=== PATIENT | male | born 1985 | race American Indian/Alaskan Native ===

== ENCOUNTER 2019-06-26 15:41 | Emergency (ER) | payer OTHER ==
[2019-06-26 16:27] VITALS: BP 122/76
--- NOTE | 2019-06-26 16:27 | Emergency Department Report ---
Blank Doc - Documentation Documentation: 33-year-old male that presents with right hand pain after tree fell onto hand. This initial assessment/diagnostic orders/clinical plan/treatment(s) is/are subject to change based on patient's health status, clinical progression and re- assessment by fellow clinical providers in the ED. Further treatment and workup at subsequent clinical providers discretion. Patient/guardians urged not to elope from the ED as their condition may be serious if not clinically assessed and managed. Initial orders include: 1- Patient sent to [facility] for further evaluation and treatment 2- xrays
--- NOTE | 2019-06-26 17:12 | XRay Report ---
RIGHT HAND 3 VIEWS INDICATION / CLINICAL INFORMATION: hand pain. COMPARISON: None available. FINDINGS: No fracture, dislocation or soft tissue swelling is seen within the right hand. Joint spaces are well preserved. Signer Name: Brandt Rapp MD Signed: 06/26/2019 5:07 PM Workstation Name: [id number]
[2019-06-26] MEDS ORDERED: ACETAMINOPHEN W/CODEINE 300-30 MG TAB PO ONE (17:27)
--- NOTE | 2019-06-26 17:27 | Emergency Department Report ---
ED Extremity Problem HPI - General Chief complaint: Extremity Problem,Nontraumatic Stated complaint: RT HAND INJURY/PAIN Time Seen by Provider: 06/26/19 16:26 Source: patient Mode of arrival: Ambulatory Limitations: No Limitations - History of Present Illness Initial comments: pt is a 33-year-old male presents emergency room with complaints of right hand pain that began just prior to arrival. Patient states that he was cutting a log at work when the log landed on his right hand. He denies any abrasions or lacerations. Denies ever injuring in the past. he denies any numbness or weakness. He denies any past medical history or allergies medications. - Related Data Previous Rx's Medication Instructions Recorded Last Taken Type Naproxen [EC-Naproxen] 500 mg PO BID PRN #14 tablet. 06/26/19 Unknown Rx Allergies Allergy/AdvReac Type Severity Reaction Status Date / Time No Known Allergies Allergy Verified 06/26/19 15:43 ED Review of Systems ROS: Stated complaint: RT HAND INJURY/PAIN Other details as noted in HPI Comment: All other systems reviewed and negative ED Past Medical Hx - Past Medical History Previous Medical History?: No - Surgical History Past Surgical History?: No - Social History Smoking Status: Current Every Day Smoker Substance Use Type: None - Medications Home Medications: Home Medications Medication Instructions Recorded Confirmed Last Taken Type Naproxen [EC-Naproxen] 500 mg PO BID PRN #14 tablet. 06/26/19 Unknown Rx ED Physical Exam - General Limitations: No Limitations General appearance: alert, in no apparent distress - Head Head exam: Present: atraumatic, normocephalic - Eye Eye exam: Present: normal appearance - ENT ENT exam: Present: mucous membranes moist - Extremities Exam Extremities exam: Present: other (TTP over the dorsal surface of the right hand, small amount of edema present, no ecchymosis, no obvious deformity, FROM of the right elbow, wrist, hand, and digits without difficulty, neurovascularly intact, skin intact) - Neurological Exam Neurological exam: Present: alert, oriented X3 - Psychiatric Psychiatric exam: Present: normal affect, normal mood - Skin Skin exam: Present: warm, dry, intact ED Course Vital Signs 06/26/19 16:25 Temperature 98 F Pulse Rate 85 Respiratory 16 Rate Blood Pressure 122/76 O2 Sat by Pulse 97 Oximetry ED Medical Decision Making - Radiology Data Radiology results: report reviewed RIGHT HAND 3 VIEWS INDICATION / CLINICAL INFORMATION: hand pain. COMPARISON: None available. FINDINGS: No fracture, dislocation or soft tissue swelling is seen within the right hand. Joint spaces are well preserved. Signer Name: Brandt Rapp MD Signed: 06/26/2019 5:07 PM Workstation Name: [id number] Transcribed By: TL Dictated By: Brandt Rapp MD Electronically Authenticated By: Brandt Rapp MD Signed Date/Time: 06/26/19 2247 - Medical Decision Making pt is a 33-year-old male presents emergency room with complaints of right hand pain that began just prior to arrival. Patient states that he was cutting a log at work when the log landed on his right hand. He denies any abrasions or lacerations. Denies ever injuring in the past. he denies any numbness or weakness. He denies any past medical history or allergies medications. VSS. on exam: TTP over the dorsal surface of the right hand, small amount of edema present, no ecchymosis, no obvious deformity, FROM of the right elbow, wrist, hand, and digits without difficulty, neurovascularly intact, skin intact. XR of the right hand: No fracture, dislocation or soft tissue swelling is seen within the right hand. Joint spaces are well preserved. discussed results with pt. pt did not drive to the ED, pts discomfort treated while in the ED and improved. pt given prescription for naproxen. advised pt to please take medication as prescribed as needed. May use elevation of the arm, ice for 15 minutes at a time, rest. Please follow-up with orthopedic doctor in the next 2-3 days if symptoms are not improving. Return to the emergency room for any new or worsening symptoms - Differential Diagnosis strain, sprain, fx, dislocation, tendon/ligament injury Critical care attestation.: If time is entered above; I have spent that time in minutes in the direct care of this critically ill patient, excluding procedure time. ED Disposition Clinical Impression: Injury of right hand Qualifiers: Encounter type: initial encounter Qualified Code(s): S69.91XA - Unspecified injury of right wrist, hand and finger(s), initial encounter Disposition: - TO HOME OR SELFCARE Is pt being admited?: No Does the pt Need Aspirin: No Condition: Stable Instructions: Hand Sprain (ED) Additional Instructions: Please take medication as prescribed as needed. May use elevation of the arm, ice for 15 minutes at a time, rest. Please follow-up with orthopedic doctor in the next 2-3 days if symptoms are not improving. Return to the emergency room for any new or worsening symptoms Prescriptions: Naproxen [EC-Naproxen] 500 mg PO BID PRN #14 tablet.dr RUCKER Reason: pain Referrals: JEROME OWENS MD [Staff Physician] - 2-3 Days Time of Disposition: 17:30 Print Language: SERBIAN
== END 2019-06-26 18:14 | disposition home or self-care (01) ==
LOC: ED 15:41
DX: S69.91XA Unspecified injury of right wrist, hand and finger(s), initial encounter (principal); F17.200 Nicotine dependence, unspecified, uncomplicated; Z79.899 Other long term (current) drug therapy; W22.8XXA Striking against or struck by other objects, initial encounter; Y93.89 Activity, other specified; Y92.69 Other specified industrial and construction area as the place of occurrence of the external cause; Y99.8 Other external cause status
CPT/HCPCS: 99283

== ENCOUNTER 2021-08-02 21:04 | Emergency (ER) | payer OTHER ==
[2021-08-02] MEDS ORDERED: LIDOCAINE-MPF (1%) 10 MG/1 ML VIAL 5 ML INFILTRATI ONE (22:23)
[2021-08-02] MEDS ORDERED: AZITHROMYCIN 1 GM ORAL PWDR PACKET PO ONE (22:23)
--- NOTE | 2021-08-02 22:24 | Emergency Department Report ---
ED Male HPI - General Chief complaint: Urogenital-Male Stated complaint: BURNING URINATION Time Seen by Provider: 08/02/21 22:19 Source: patient Mode of arrival: Ambulatory Limitations: No Limitations - History of Present Illness Initial comments: Patient presents for STI exposure. States dysuria frequency urgency and frequency. White penile discharge. There is no open lesions sores or rashes. Is been no abdominal pain no nausea no vomiting. No fever chills. Patient does endorse unprotected sex. MD Complaint: dysuria - Related Data Previous Rx's Medication Instructions Recorded Last Taken Type Naproxen [EC-Naproxen] 500 mg PO BID PRN #14 tablet. 06/26/19 Unknown Rx Doxycycline Monohydrate 100 mg PO BID 7 Days #14 tablet 08/02/21 Unknown Rx Allergies Allergy/AdvReac Type Severity Reaction Status Date / Time No Known Allergies Allergy Verified 06/26/19 15:43 ED Review of Systems ROS: Stated complaint: BURNING URINATION Other details as noted in HPI Constitutional: denies: chills, fever Eyes: denies: eye pain, eye discharge, vision change ENT: denies: ear pain, throat pain Respiratory: denies: cough, shortness of breath, wheezing Cardiovascular: denies: chest pain, palpitations Endocrine: no symptoms reported Gastrointestinal: denies: abdominal pain, nausea, vomiting, diarrhea Genitourinary: urgency, dysuria, frequency, discharge. denies: testicular pain, testicular mass Musculoskeletal: denies: back pain, joint swelling, arthralgia Skin: denies: rash, lesions Neurological: denies: headache, weakness, paresthesias Psychiatric: denies: anxiety, depression Hematological/Lymphatic: denies: easy bleeding, easy bruising ED Past Medical Hx - Past Medical History Previous Medical History?: No - Surgical History Past Surgical History?: No - Social History Smoking Status: Current Every Day Smoker Substance Use Type: None - Medications Home Medications: Home Medications Medication Instructions Recorded Confirmed Last Taken Type Naproxen [EC-Naproxen] 500 mg PO BID PRN #14 tablet. 06/26/19 Unknown Rx Doxycycline Monohydrate 100 mg PO BID 7 Days #14 tablet 08/02/21 Unknown Rx ED Physical Exam - General Limitations: No Limitations General appearance: alert - Head Head exam: Present: atraumatic - Eye Eye exam: Present: normal appearance, EOMI Pupils: Present: normal accommodation - ENT ENT exam: Present: mucous membranes moist - Neck Neck exam: Present: normal inspection, full ROM. Absent: tenderness - Respiratory Respiratory exam: Present: normal lung sounds bilaterally. Absent: respiratory distress, wheezes, stridor - Cardiovascular Cardiovascular Exam: Present: regular rate, normal rhythm, normal heart sounds. Absent: systolic murmur, diastolic murmur, rubs, gallop - GI/Abdominal GI/Abdominal exam: Present: soft, normal bowel sounds. Absent: distended, tenderness, guarding, rebound, rigid, bruit, hernia - Rectal Rectal exam: Present: deferred - Extremities Exam Extremities exam: Present: normal inspection, full ROM. Absent: tenderness - Back Exam Back exam: Present: normal inspection, full ROM. Absent: CVA tenderness (R), CVA tenderness (L) - Neurological Exam Neurological exam: Present: alert, oriented X3, CN II-XII intact, normal gait - Psychiatric Psychiatric exam: Present: normal affect, normal mood - Skin Skin exam: Present: warm, dry, intact, normal color. Absent: rash ED Medical Decision Making - Medical Decision Making This is an STI exposure patient treated for STI, will follow-up with health department for HIV and HSV screening. Patient verbalized agreement and understanding of discharge plan. Patient DC'd home in stable condition at this time. Critical care attestation.: If time is entered above; I have spent that time in minutes in the direct care of this critically ill patient, excluding procedure time. ED Disposition Clinical Impression: STI (sexually transmitted infection) Disposition: 01 HOME / SELF CARE / HOMELESS Is pt being admited?: No Does the pt Need Aspirin: No Condition: Stable Instructions: Safe Sex Additional Instructions: Take medications as prescribed, follow-up with your doctor in 2 to 3 days. Follow-up with health department for HIV and HSV screening. Prescriptions: Doxycycline Monohydrate 100 mg PO BID 7 Days #14 tablet Referrals: [facility] [Outside] - 3-5 Days Forms: Work/School Release Form(ED) Time of Disposition: 22:25
[2021-08-02 22:33] LABS: Bilirubin,Urine NEG (Negative); Blood,Urine NEG (Negative); Color,Urine Yellow (Yellow); Mucus,Urine FEW /HPF
[2021-08-02 22:34] LABS: WBC,Urine > 182.0 /HPF (0.0-6.0)
[2021-08-03 04:15] VITALS: BP 115/76
== END 2021-08-02 23:06 | disposition home or self-care (01) ==
LOC: ED 21:04
DX: A64 Unspecified sexually transmitted disease (principal); F17.200 Nicotine dependence, unspecified, uncomplicated
CPT/HCPCS: 81001; 96372; 99283; J0696; J3490